=== PATIENT | female | born 2000 | race Caucasian/White ===

== ENCOUNTER 2024-04-11 17:49 | Emergency (ER) | payer SELFPAY ==
[~2024-04-11] VITALS: Ht 182.9 cm; Wt 113.6 kg
[2024-04-11 17:59] VITALS: TEMP 98.4
[2024-04-11] MEDS ORDERED: Amoxicillin/Clavulanate K+ 875/125 MG TAB PO ONE (18:15)
[2024-04-11] MEDS ORDERED: AMOXICILLIN 8751 TAB PO (18:28)
[2024-04-11 18:41] VITALS: BP 132/84; PULSE 76
== END 2024-04-11 18:41 | disposition home or self-care (01) ==
LOC: COL.ER 17:49
DX: S61.051A Open bite of right thumb without damage to nail, initial encounter (principal); W54.0XXA Bitten by dog, initial encounter; Y92.89 Other specified places as the place of occurrence of the external cause; Y99.0 Civilian activity done for income or pay